=== PATIENT | male | born 1990 | race Hispanic/Latino ===

== ENCOUNTER 2017-04-29 11:32 | Inpatient (IN) | payer OTHER ==
[2017-04-29 11:47] VITALS: BMI 29.5
--- NOTE | 2017-04-29 12:21 | C.PDOC ---
History Of Present Illness 27 y/o male presents to ED with c/o syncopal episode while in the shower yesterday. Patient states he started feeling lightheaded, legs/knees felt like they buckled out from under him, and he passed out for a few seconds. He denies head trauma. Patient also reports tingling sensations in hands and feet over the last few weeks, and states it feels like his hands are cold. Denies chest pain, SOB, palpitation, visual changes, slurred speech, facial droop prior to syncopal episode. Of note, patient was started on Celexa 3 weeks ago, does not take any other medication. He denies history of neurologic/rheumatologic diseases in his immediate family; notes father had CVA in his 60s. Time Seen by Provider: 04/29/17 12:09 Chief Complaint (Nursing): Syncope History Per: Patient History/Exam Limitations: no limitations Onset/Duration Of Symptoms: Days Current Symptoms Are (Timing): Better Seizure Or Post-ictal Symptoms: None Fall Associated With With Symptoms: Yes Severity: Moderate - Symptoms Of CVA Associated Symptoms: denies: Impaired Speech, Seizure Activity, New Vision Deficit(Left), New Vision Deficit(Right), Decreased Ability To Walk, New Confusion Past Medical History Reviewed: Historical Data, Nursing Documentation, Vital Signs Vital Signs: Last Vital Signs Temp 98.8 F 04/29/17 14:17 Pulse 91 H 04/29/17 17:14 Resp 18 04/29/17 17:14 BP 130/80 04/29/17 17:14 Pulse Ox 97 04/29/17 17:14 - Medical History PMH: No Chronic Diseases Family History: States: Stroke (father) - Social History Hx Alcohol Use: Yes Hx Substance Use: No - Immunization History Hx Tetanus Toxoid Vaccination: No Hx Influenza Vaccination: No Hx Pneumococcal Vaccination: No Review Of Systems Except As Marked, All Systems Reviewed And Found Negative. Constitutional: Negative for: Fever, Chills Cardiovascular: Negative for: Chest Pain, Palpitations Respiratory: Negative for: Cough, Shortness of Breath, Wheezing Gastrointestinal: Negative for: Nausea, Vomiting, Abdominal Pain Musculoskeletal: Negative for: Neck Pain Skin: Negative for: Rash Neurological: Positive for: Other (syncopal episode; tingling sensation hands and feet). Negative for: Weakness, Incoordination, Change in Speech, Confusion , Seizures, Altered Mental Status, Headache, Dizziness Physical Exam - Physical Exam Appears: Well, Non-toxic, No Acute Distress Skin: Normal Color, Warm, Dry, No Rash Head: Atraumatic, Normacephalic Eye(s): bilateral: Normal Inspection, PERRL, EOMI Oral Mucosa: Moist Neck: Normal, Normal ROM, No Midline Cervical Tenderness, No Paracervical Tenderness, No Step Off Deformity, Supple Cardiovascular: Rhythm Regular, No Murmur Respiratory: Normal Breath Sounds, No Rales, No Rhonchi, No Wheezing Gastrointestinal/Abdominal: Normal Exam, Bowel Sounds, Soft, No Tenderness Extremity: Normal ROM, No Pedal Edema, No Calf Tenderness, Capillary Refill (< 2 sec all digits ) Extremity: Bilateral: Atraumatic, Normal Color And Temperature, Normal ROM Pulses: Left Radial: Normal, Right Radial: Normal, Left Dorsalis Pedis: Normal, Right Dorsalis Pedis: Normal Neurological/Psych: Oriented x3, Normal Speech, Normal Cognition, Normal Cranial Nerves, No Cerebellar Signs, Normal Motor, No Normal Sensation ( subjectively decreased sensation in lower legs and hands B/L), No Dysarthria, No Romberg Gait: Steady ED Course And Treatment - Laboratory Results Result Diagrams: 04/29/17 12:42 04/29/17 12:42 ECG: Interpreted By Me, Viewed By Me (sinus tachycardia 104 bpm, normal axis, no acute ST/T wave changes) ECG Interpretation: Abnormal (tachycardic ) O2 Sat by Pulse Oximetry: 97 (RA) Pulse Ox Interpretation: Normal - CT Scan/US CT Head Other Rad Studies (CT/US): Read By Radiologist, Radiology Report Reviewed CT/US Interpretation: FINDINGS: HEMORRHAGE: No intracranial hemorrhage. BRAIN : No mass effect or edema. No atrophy or chronic microvascular ischemic changes. VENTRICLES: No hydrocephalus. CALVARIUM: Unremarkable. PARANASAL SINUSES: Unremarkable as visualized. No significant inflammatory changes. MASTOID AIR CELLS: Unremarkable as visualized. No inflammatory changes. OTHER FINDINGS: None. IMPRESSION: No acute intracranial pathology identified. CTA CHEST Other Rad Studies (CT/US): Read By Radiologist, Radiology Report Reviewed CT/US Interpretation: Accession No. : [id number]. Patient Name / ID : CHEYENNE RICHARDSON / [id number]. Exam Date : 04/29/2017 15:17:49 ( Approved ). Study Comment : Sex / Age : M / 27Y. Creator : Shraddha Apodaca MD. Dictator : Shraddha Apodaca MD. Director Of Manufacturing Operations : Educational Program Director : Shraddha Apodaca MD. Approver2 : Report Date : 04/29/2017 15:53:41. My Comment : . CTA chest PE protocol. Indication: Syncope, elevated D-dimer, shortness of breath, rule out PE. Technique: Contiguous axial images were obtained through the chest with intravenous contrast enhancement. Sagittal and coronal reconstructions were generated and reviewed. This CT exam was performed using 1 or more of the falling dose reduction techniques: Automated exposure control, adjustment of the MAA and/or kV according to patient size, and/or use of iterative reconstruction technique. IV Contrast: 100 mL Visipaque. . Radiation dose (DLP): 633.33 MGy-cm. Comparison: None available. Findings: Visualized portions of the inferior thyroid gland appear unremarkable. The mediastinal and hilar vascular structures appear within normal limits. The heart appears within normal limits of size. No large central pulmonary embolus evident. Small focal filling defect noted within a right lower lobe pulmonary artery subsegmental branch (series 6, image 62). No focal consolidation. No pleural effusion. No pneumothorax. No suspicious pulmonary nodules measuring greater than 5 mm. Limited visualized portions of the upper abdomen demonstrates 1.8 cm probable splenule. No acute osseous abnormality is detected. Impression: Small focal filling defect noted within right lower lobe pulmonary artery subsegmental branch, possibly small embolus. No large central pulmonary embolus identified. Progress Note: Blood work, EKG, CT head, UA, UDS ordered and reviewed. Patient given IV NS bolus for elevated CK. D-dimer elevated - CTA chest ordered and (+ ) for small right sided PE. SC Lovenox given. - Physician Consult Information Physician Contacted: Jake Clifford Outcome Of Conversation: Discussed patient with Dr. Nazia Clifford, agrees with admission to his service for syncope, PE, elevated CK, tingling/numbness in hands/legs. Medical Decision Making Medical Decision Making: differentisal diagnoses considered: rhabdomyolysis, PE, SC/ACS, cardiac arrythmia, autoimmune disease (SLE, RA, polymyositis, dermatomyos), electrolyte abnormality, Guillain Nerinx, myasthenia gravis, infectious/viral myositis Disposition - Disposition Disposition Time: 16:30 Condition: STABLE - Clinical Impression Clinical Impression: Pulmonary embolism, Syncope, Elevated CK - Scribe Statement The provider has reviewed the documentation as recorded by the Scribe SM All medical record entries made by the Scribe were at my direction and personally dictated by me. I have reviewed the chart and agree that the record accurately reflects my personal performance of the history, physical exam, medical decision making, and the department course for this patient. I have also personally directed, reviewed, and agree with the discharge instructions and disposition. Decision To Admit - Pt Status Changed To: Hospital Disposition Of: Inpatient - Admit Certification Admit to Inpatient:: After my assessment, the patient will require hospitalization for at least two midnights. This is because of the severity of symptoms shown, intensity of services needed, and/or the medical risk in this patient being treated as an outpatient. - InPatient: Physician Admission Certification: I certify that this patient requires 2 or more midnights of care for the following reason:: see notes - . Bed Request Type: Telemetry Admitting Physician: Jake Clifford Patient Diagnosis: Pulmonary embolism, Syncope, Elevated CK
[2017-04-29 12:47] LABS: BASO # 0.1 K/uL (0.0-0.2); BASO % 0.7 % (0.0-2.0); EOS # 0.1 K/uL (0.0-0.7); EOS % 1.2 % (0.0-4.0); HEMATOCRIT 41.6 % (35.0-51.0); LYMPH # 2.6 K/uL (1.0-4.3); LYMPH % 26.2 % (20.0-40.0); MEAN CELL VOLUME 93.5 fL (80.0-94.0); MEAN CORPUSCULAR HEMOGLOBIN 33.1 pg (27.0-31.0); MEAN CORPUSCULAR HGB CONC 35.4 g/dL (33.0-37.0); MEAN PLATELET VOLUME 7.3 fL (7.2-11.7); MONO # 0.9 K/uL (0.0-0.8); MONO % 8.8 % (0.0-10.0); RED CELL DISTRIBUTION WIDTH 13.8 % (11.5-14.5); WHITE BLOOD COUNT 9.8 K/uL (4.8-10.8)
[2017-04-29 12:51] LABS: RBC URINE < 1 /hpf (0-3); URINE BILIRUBIN NEGATIVE (NEGATIVE); URINE BLOOD NEGATIVE (NEGATIVE); URINE COLOR Yellow (YELLOW); URINE GLUCOSE (UA) NORMAL (Normal); URINE KETONE NEGATIVE (NEGATIVE); URINE LEUKOCYTE ESTERASE NEG Leu/uL (Negative); URINE PROTEIN NEGATIVE (NEGATIVE); URINE UROBILINOGEN NORMAL mg/dL (0.2-1.0); WBC URINE 2 /hpf (0-5)
[2017-04-29 12:53] LABS: CHLORIDE 102 mmol/L (98-107); SODIUM 140 mmol/L (132-148)
[2017-04-29 12:54] LABS: POTASSIUM 3.8 mmol/L (3.6-5.2)
[2017-04-29 12:56] LABS: ALB/GLOB RATIO 1.1 (1.0-2.1); ALKALINE PHOSPHATASE 68 U/L (38-126); ALT/SGPT 40 U/L (21-72); AST/SGOT 43 U/L (17-59); BLOOD UREA NITROGEN 17 mg/dL (9-20); CARBON DIOXIDE 27 mmol/L (22-30); GFR AFRICAN-AMERICAN > 60; GLUCOSE,RANDOM 79 mg/dL (75-110); TOTAL PROTEIN 8.9 g/dL (6.3-8.3)
[2017-04-29 12:57] LABS: CALCIUM 9.6 mg/dl (8.6-10.4)
[2017-04-29] MEDS ORDERED: Sodium Chloride 0.9% 1,000 ML IV ONE (13:23)
[2017-04-29] MEDS ORDERED: Sodium Chloride 0.9% 1,000 ML ONE (13:29)
--- NOTE | 2017-04-29 13:39 | CT ---
PROCEDURE: CT HEAD WITHOUT CONTRAST. HISTORY: SYNCOPE COMPARISON: None available. TECHNIQUE: Axial computed tomography images were obtained through the head/brain without intravenous contrast. Radiation dose: Total exam DLP = 956.62 mGy-cm. This CT exam was performed using one or more of the following dose reduction techniques: Automated exposure control, adjustment of the mA and/or kV according to patient size, and/or use of iterative reconstruction technique. FINDINGS: HEMORRHAGE: No intracranial hemorrhage. BRAIN: No mass effect or edema. No atrophy or chronic microvascular ischemic changes. VENTRICLES: No hydrocephalus. CALVARIUM: Unremarkable. PARANASAL SINUSES: Unremarkable as visualized. No significant inflammatory changes. MASTOID AIR CELLS: Unremarkable as visualized. No inflammatory changes. OTHER FINDINGS: None. IMPRESSION: No acute intracranial pathology identified.
[2017-04-29 13:46] LABS: THYROID STIMULATING HORMONE 3.68 mIU/L (0.46-4.68)
[2017-04-29] MEDS ORDERED: Iodixanol 320 mg/ml 150 ml Bottle IV ONE (14:25)
--- NOTE | 2017-04-29 15:55 | CT ---
CTA chest PE protocol Indication: Syncope, elevated D-dimer, shortness of breath, rule out PE Technique: Contiguous axial images were obtained through the chest with intravenous contrast enhancement. Sagittal and coronal reconstructions were generated and reviewed. This CT exam was performed using 1 or more of the falling dose reduction techniques: Automated exposure control, adjustment of the MAA and/or kV according to patient size, and/or use of iterative reconstruction technique. IV Contrast: 100 mL Visipaque Radiation dose (DLP): 633.33 MGy-cm. Comparison: None available. Findings: Visualized portions of the inferior thyroid gland appear unremarkable. The mediastinal and hilar vascular structures appear within normal limits. The heart appears within normal limits of size. No large central pulmonary embolus evident. Small focal filling defect noted within a right lower lobe pulmonary artery subsegmental branch (series 6, image 62). No focal consolidation. No pleural effusion. No pneumothorax. No suspicious pulmonary nodules measuring greater than 5 mm. Limited visualized portions of the upper abdomen demonstrates 1.8 cm probable splenule. No acute osseous abnormality is detected. Impression: Small focal filling defect noted within right lower lobe pulmonary artery subsegmental branch, possibly small embolus. No large central pulmonary embolus identified.
[2017-04-29] MEDS ORDERED: Enoxaparin 40 mg Syringe SC STA (16:32)
[2017-04-29] MEDS ORDERED: Enoxaparin 40 mg Syringe ONE (16:43)
[2017-04-29] MEDS ORDERED: Enoxaparin 60 mg Syringe ONE (16:44)
--- NOTE | 2017-04-29 19:57 | CP.PCM.HP ---
History of Present Illness - History of Present Illness History of Present Illness: A 27-year-old male with PMH- depression [on citalopram] presents to the ER with C/Osyncopal episodes. The patient reports that the pain patient was in shower he felt some abnormal sensation in his legs but still continued the shower had weakness in the legs and then he fell down. He immediately regained consciousness. No associated complaint of bowel or bladder loss. Over the next 2 days he had 2 similar episodes. No C/Oloss of consciousness, head trauma, blurry vision, diaphoresis, chest pain, palpitations, seizures, tongue biting or bowel or bladder disturbance. Past Patient History - Past Social History Smoking Status: Never Smoked - PSYCHIATRIC Hx Substance Use: No - SURGICAL HISTORY Hx Surgeries: Yes Hx Orthopedic Surgery: Yes (left wrist) Meds Home Medications: Home Medication List Medication Instructions Recorded Confirmed Type Dabigatran [Pradaxa] 150 mg PO BID #60 cap 05/01/17 Rx Allergies/Adverse Reactions: Allergies Allergy/AdvReac Type Severity Reaction Status Date / Time No Known Allergies Allergy Verified 04/29/17 11:52 Physical Exam - Constitutional Appears: Well - Head Exam Head Exam: ATRAUMATIC, NORMAL INSPECTION, NORMOCEPHALIC - Eye Exam Eye Exam: EOMI, Normal appearance, PERRL Pupil Exam: NORMAL ACCOMODATION, PERRL - ENT Exam ENT Exam: Mucous Membranes Moist, Normal Exam - Neck Exam Neck exam: Positive for: Normal Inspection - Respiratory Exam Respiratory Exam: Decreased Breath Sounds - Cardiovascular Exam Cardiovascular Exam: REGULAR RHYTHM, +S1, +S2 - GI/Abdominal Exam GI & Abdominal Exam: Diminished Bowel Sounds, Soft - Rectal Exam Rectal Exam: Deferred Results - Vital Signs Recent Vital Signs: Last Vital Signs Temp 99.4 F 04/29/17 18:44 Pulse 84 04/29/17 18:44 Resp 20 04/29/17 18:44 BP 123/79 04/29/17 18:44 Pulse Ox 97 04/29/17 18:44 - Labs Result Diagrams: 04/29/17 12:42 04/29/17 12:42 Labs: Laboratory Results - last 24 hr 04/29/17 04/29/17 04/29/17 12:42 12:42 12:42 WBC 9.8 RBC 4.45 Hgb 14.7 Hct 41.6 MCV 93.5 MCH 33.1 H MCHC 35.4 RDW 13.8 Plt Count 271 MPV 7.3 Neut % (Auto) 63.1 Lymph % (Auto) 26.2 [place] % (Auto) 8.8 Eos % (Auto) 1.2 Baso % (Auto) 0.7 Neut # 6.2 Lymph # 2.6 [place] # 0.9 H Eos # 0.1 Baso # 0.1 ESR 25 H D-Dimer, Quantitative 661 H Sodium Potassium Chloride Carbon Dioxide Anion Gap BUN Creatinine Est GFR ( Amer) Est GFR (Non-Af Amer) Random Glucose Calcium Total Bilirubin AST ALT Alkaline Phosphatase Total Creatine Kinase CK-MB (Mass) Troponin I Total Protein Albumin Globulin Albumin/Globulin Ratio TSH 3rd Generation Urine Color Yellow Urine Clarity Clear Urine pH 5.0 Ur Specific [place] 1.017 Urine Protein Negative Urine Glucose (UA) Normal Urine Ketones Negative Urine Blood Negative Urine Nitrate Negative Urine Bilirubin Negative Urine Urobilinogen Normal Ur Leukocyte Esterase Neg Urine WBC (Auto) 2 Urine RBC (Auto) < 1 Urine Opiates Screen Urine Methadone Screen Ur Barbiturates Screen Ur Phencyclidine Scrn Ur Amphetamines Screen U Benzodiazepines Scrn U Oth Cocaine Metabols U Cannabinoids Screen 04/29/17 04/29/17 12:42 12:42 WBC RBC Hgb Hct MCV MCH MCHC RDW Plt Count MPV Neut % (Auto) Lymph % (Auto) [place] % (Auto) Eos % (Auto) Baso % (Auto) Neut # Lymph # [place] # Eos # Baso # ESR D-Dimer, Quantitative Sodium 140 Potassium 3.8 Chloride 102 Carbon Dioxide 27 Anion Gap 14 BUN 17 Creatinine 1.0 Est GFR ( Amer) > 60 Est GFR (Non-Af Amer) > 60 Random Glucose 79 Calcium 9.6 Total Bilirubin 1.0 AST 43 ALT 40 Alkaline Phosphatase 68 Total Creatine Kinase 1086 H CK-MB (Mass) 3.27 Troponin I < 0.0120 Total Protein 8.9 H Albumin 4.7 Globulin 4.2 H Albumin/Globulin Ratio 1.1 TSH 3rd Generation 3.68 Urine Color Urine Clarity Urine pH Ur Specific [place] Urine Protein Urine Glucose (UA) Urine Ketones Urine Blood Urine Nitrate Urine Bilirubin Urine Urobilinogen Ur Leukocyte Esterase Urine WBC (Auto) Urine RBC (Auto) Urine Opiates Screen Negative Urine Methadone Screen Negative Ur Barbiturates Screen Negative Ur Phencyclidine Scrn Negative Ur Amphetamines Screen Negative U Benzodiazepines Scrn Negative U Oth Cocaine Metabols Negative U Cannabinoids Screen Negative
--- NOTE | 2017-04-30 09:56 | CP.PCM.CON ---
<Kalyn Ragsdale - Last Filed: 04/30/17 14:01> History of Present Illness - History of Present Illness History of Present Illness: Consult Note for Dr. Goins's Service - Pulmonology Reason for Consult: " Pulmonary Embolism " HPI: 27 M with PMHx of Depression/Anxiety presented to the ED s/p 3 syncopal episodes. Patient reports on 04/28, 6:30 am patient was preparing to shower when he started to feel his knees buckle, he did not fall that time but then proceeded into the shower where he stated, 3 separate episodes occurred back to back where " his knees buckled and I went from one moment standing to the next moment being on the floor of the bathtub". He denied LOC, hitting his head, blurry vision, diaphoresis, chest pain, SOB, seizures, tongue biting, urine or bowel incontinence. PMHx: Depression/Anxiety PSHx: Left wrist fracture repair (pins in place 2010) Meds: CeleXa 20mg PO daily All: NKDA SHx: Admitted to smoking 1-2 cigarettes sparingly, social ETOH use, denied any illicit drug use FHx: SIGNIFICANT history of Cancer in Mother's side of the family, Father stroke age 59 - with no risk factors - alive and well Past Patient History - Past Social History Smoking Status: Current Some Days Smoker - CARDIAC Hx Cardiac Disorders: No - PULMONARY Hx Respiratory Disorders: No - NEUROLOGICAL Hx Neurological Disorder: No - HEENT Hx HEENT Problems: No - RENAL Hx Chronic Kidney Disease: No - ENDOCRINE/METABOLIC Hx Endocrine Disorders: No - HEMATOLOGICAL/ONCOLOGICAL Hx Blood Disorders: No - INTEGUMENTARY Hx Dermatological Problems: No - MUSCULOSKELETAL/RHEUMATOLOGICAL Hx Musculoskeletal Disorders: No Hx Falls: Yes - GASTROINTESTINAL Hx Gastrointestinal Disorders: No - GENITOURINARY/GYNECOLOGICAL Hx Genitourinary Disorders: No - PSYCHIATRIC Hx Psychophysiologic Disorder: No Hx Substance Use: No - SURGICAL HISTORY Hx Surgeries: Yes Hx Orthopedic Surgery: Yes (left wrist) - ANESTHESIA Hx Anesthesia: Yes Hx Anesthesia Reactions: No Hx Malignant Hyperthermia: No Has any member of the family had a problem w/ anesthesia?: No Meds Allergies/Adverse Reactions: Allergies Allergy/AdvReac Type Severity Reaction Status Date / Time No Known Allergies Allergy Verified 04/29/17 11:52 - Medications Medications: Current Medications Citalopram Hydrobromide (Celexa) 20 mg PO DAILY [facility] Enoxaparin Sodium (Lovenox) 100 mg SC Q12 [place] Pneumococcal Polyvalent Vaccine (Pneumovax 23 Vaccine) 0.5 ml IM .ONCE ONE Stop: 05/01/17 10:01 Physical Exam - Constitutional Appears: No Acute Distress - Head Exam Head Exam: NORMAL INSPECTION, NORMOCEPHALIC - Eye Exam Eye Exam: EOMI, Normal appearance, PERRL Pupil Exam: NORMAL ACCOMODATION - ENT Exam ENT Exam: Mucous Membranes Moist, Normal Exam - Respiratory Exam Respiratory Exam: Clear to Auscultation Bilateral, NORMAL BREATHING PATTERN. absent: Decreased Breath Sounds, Wheezes - Cardiovascular Exam Cardiovascular Exam: REGULAR RHYTHM, RRR, +S1, +S2 - GI/Abdominal Exam GI & Abdominal Exam: Normal Bowel Sounds, Soft. absent: Distended, Tenderness - Rectal Exam Rectal Exam: Deferred - Extremities Exam Extremities exam: Positive for: normal inspection, pedal pulses present. Negative for: pedal edema, tenderness - Back Exam Back exam: NORMAL INSPECTION - Neurological Exam Neurological exam: Alert, CN II-XII Intact, Oriented x3 - Psychiatric Exam Psychiatric exam: Normal Affect, Normal Mood - Skin Skin Exam: Dry, Intact, Normal Color, Warm Additional comments: No petechiae noted Results - Vital Signs Recent Vital Signs: Last Vital Signs Temp 97.8 F 04/30/17 09:25 Pulse 68 04/30/17 09:25 Resp 20 04/30/17 09:25 BP 134/92 H 04/30/17 09:25 Pulse Ox 97 04/30/17 09:25 - Labs Result Diagrams: 04/29/17 12:42 04/29/17 12:42 Labs: Laboratory Results - last 24 hr 04/29/17 04/29/17 04/29/17 12:42 12:42 12:42 WBC 9.8 RBC 4.45 Hgb 14.7 Hct 41.6 MCV 93.5 MCH 33.1 H MCHC 35.4 RDW 13.8 Plt Count 271 MPV 7.3 Neut % (Auto) 63.1 Lymph % (Auto) 26.2 [place] % (Auto) 8.8 Eos % (Auto) 1.2 Baso % (Auto) 0.7 Neut # 6.2 Lymph # 2.6 [place] # 0.9 H Eos # 0.1 Baso # 0.1 ESR 25 H D-Dimer, Quantitative 661 H Sodium Potassium Chloride Carbon Dioxide Anion Gap BUN Creatinine Est GFR ( Amer) Est GFR (Non-Af Amer) Random Glucose Calcium Total Bilirubin AST ALT Alkaline Phosphatase Total Creatine Kinase CK-MB (Mass) Troponin I Total Protein Albumin Globulin Albumin/Globulin Ratio TSH 3rd Generation Urine Color Yellow Urine Clarity Clear Urine pH 5.0 Ur Specific [place] 1.017 Urine Protein Negative Urine Glucose (UA) Normal Urine Ketones Negative Urine Blood Negative Urine Nitrate Negative Urine Bilirubin Negative Urine Urobilinogen Normal Ur Leukocyte Esterase Neg Urine WBC (Auto) 2 Urine RBC (Auto) < 1 Urine Opiates Screen Urine Methadone Screen Ur Barbiturates Screen Ur Phencyclidine Scrn Ur Amphetamines Screen U Benzodiazepines Scrn U Oth Cocaine Metabols U Cannabinoids Screen 04/29/17 04/29/17 12:42 12:42 WBC RBC Hgb Hct MCV MCH MCHC RDW Plt Count MPV Neut % (Auto) Lymph % (Auto) [place] % (Auto) Eos % (Auto) Baso % (Auto) Neut # Lymph # [place] # Eos # Baso # ESR D-Dimer, Quantitative Sodium 140 Potassium 3.8 Chloride 102 Carbon Dioxide 27 Anion Gap 14 BUN 17 Creatinine 1.0 Est GFR ( Amer) > 60 Est GFR (Non-Af Amer) > 60 Random Glucose 79 Calcium 9.6 Total Bilirubin 1.0 AST 43 ALT 40 Alkaline Phosphatase 68 Total Creatine Kinase 1086 H CK-MB (Mass) 3.27 Troponin I < 0.0120 Total Protein 8.9 H Albumin 4.7 Globulin 4.2 H Albumin/Globulin Ratio 1.1 TSH 3rd Generation 3.68 Urine Color Urine Clarity Urine pH Ur Specific [place] Urine Protein Urine Glucose (UA) Urine Ketones Urine Blood Urine Nitrate Urine Bilirubin Urine Urobilinogen Ur Leukocyte Esterase Urine WBC (Auto) Urine RBC (Auto) Urine Opiates Screen Negative Urine Methadone Screen Negative Ur Barbiturates Screen Negative Ur Phencyclidine Scrn Negative Ur Amphetamines Screen Negative U Benzodiazepines Scrn Negative U Oth Cocaine Metabols Negative U Cannabinoids Screen Negative Assessment & Plan - Assessment and Plan (Free Text) Plan: Pulmonary Embolism Tachycardia on admission EKG: Sinus tachycardia 104 bpm, normal axis, no acute ST/T wave changes D- Dimer: 661 CPK: 1086 ESR: 25 JANELLE: CT Chest: Small focal filling defect noted within right lower lobe pulmonary artery subsegmental branch, possibly small embolus. No large central pulmonary embolus identified. Heme/Onc consulted- Dr. Radha Cervantes - help appreciated F/U hypercoagulability workup, venous dopplers Lovenox 100mg SC Q12 Syncope Head CT: No acute intracranial pathology identified. UDS - negative F/U ECHO Strong Family Hx of Malignancy Heme/Onc consulted- Dr. Radha Cervantes - help appreciated DW Melyssa Florez DO, PGY-1 <Octavio Goins S - Last Filed: 04/30/17 15:09> Meds - Medications Medications: Current Medications Citalopram Hydrobromide (Celexa) 20 mg PO DAILY [facility] Last Admin: 04/30/17 10:48 Dose: 20 mg Enoxaparin Sodium (Lovenox) 100 mg SC Q12 [facility] Last Admin: 04/30/17 10:48 Dose: 100 mg Pneumococcal Polyvalent Vaccine (Pneumovax 23 Vaccine) 0.5 ml IM .ONCE ONE Stop: 05/01/17 10:01 Results - Vital Signs Recent Vital Signs: Last Vital Signs Temp 97.8 F 04/30/17 09:25 Pulse 68 04/30/17 09:25 Resp 20 04/30/17 09:25 BP 134/92 H 04/30/17 09:25 Pulse Ox 97 04/30/17 09:25 - Labs Result Diagrams: 04/29/17 12:42 04/29/17 12:42 Attending/Attestation - Attestation I have personally seen and examined this patient.: Yes I have fully participated in the care of the patient.: Yes I have reviewed all pertinent clinical information: Yes Notes (Text): 04/30/17 15:08 patient seen and examined. CT of the chest with contrast showed pulmonary embolism Continue Lovenox Feel this Doppler of lower extremities Hematology consult
[2017-04-30] MEDS: Enoxaparin 100 mg Syringe SC SCH ×2 (10:48→21:09)
--- NOTE | 2017-04-30 18:43 | CP.PCM.PN ---
Subjective - Date & Time of Evaluation Date of Evaluation: 04/30/17 Time of Evaluation: 10:40 - Subjective Subjective: clinically same Objective - Vital Signs/Intake and Output Vital Signs (last 24 hours): Temp Pulse Resp BP Pulse Ox 98.4 F 84 18 121/75 97 04/30/17 15:15 04/30/17 15:15 04/30/17 15:15 04/30/17 15:15 04/30/17 15:15 Intake and Output: 04/30/17 04/30/17 06:59 18:59 Intake Total 400 400 Balance 400 400 - Medications Medications: Current Medications Citalopram Hydrobromide (Celexa) 20 mg PO DAILY [facility] Last Admin: 04/30/17 10:48 Dose: 20 mg Enoxaparin Sodium (Lovenox) 100 mg SC Q12 [facility] Last Admin: 04/30/17 10:48 Dose: 100 mg Pneumococcal Polyvalent Vaccine (Pneumovax 23 Vaccine) 0.5 ml IM .ONCE ONE Stop: 05/01/17 10:01 - Labs Labs: 04/29/17 12:42 04/29/17 12:42 - Constitutional Appears: Well - Head Exam Head Exam: ATRAUMATIC, NORMAL INSPECTION, NORMOCEPHALIC - Eye Exam Eye Exam: EOMI, Normal appearance, PERRL Pupil Exam: NORMAL ACCOMODATION, PERRL - ENT Exam ENT Exam: Mucous Membranes Moist, Normal Exam - Neck Exam Neck Exam: Full ROM, Normal Inspection. absent: Lymphadenopathy - Respiratory Exam Respiratory Exam: Clear to Ausculation Bilateral, NORMAL BREATHING PATTERN - Cardiovascular Exam Cardiovascular Exam: REGULAR RHYTHM, +S1, +S2. absent: Murmur - GI/Abdominal Exam GI & Abdominal Exam: Soft, Normal Bowel Sounds. absent: Tenderness - Rectal Exam Rectal Exam: NORMAL INSPECTION - Back Exam Back Exam: NORMAL INSPECTION - Neurological Exam Neurological Exam: Alert, Awake, CN II-XII Intact, Normal Gait, Oriented x3 - Psychiatric Exam Psychiatric exam: Normal Affect, Normal Mood Assessment and Plan (1) Elevated CK Status: Acute (2) Elevated serum globulin level Status: Acute (3) Pulmonary embolism Status: Acute (4) Syncope Status: Acute - Assessment and Plan (Free Text) Plan: Patient examined. Patient medical. Chest x-ray normal. CTA chest suggestive of a small focal filling defect in the right lower lobe pulmonary artery subsegmental branch possibility of small embolus. CT head not suggestive of any acute intracranial pathology. Continue supportive care.
--- NOTE | 2017-04-30 20:33 | CP.PCM.CON ---
History of Present Illness - History of Present Illness History of Present Illness: 27 year old male with a history of anxiety admitted after several episodes of falling and blackouts, found to have a pulmonary embolism. The patient reports to having strange sensations which he attributed to being tired. He thought a shower would help but had several episodes of his knees buckling on his way to the shower. He denies shortness of breath but notes he has had chest pain for 1 year. He has been having numbness in his hands and feet, with calf discomfort. He recently took a flight to [place] and was sedentary for about 3 hours. Past medical history: anxiety Past surgical history: Wrist pin Family history: Father had [place] at 59, grandmother had lung cancer (smoker) Social history: Denies tobacco, social alcohol, and denies illicit drug use. Allergies: NKA Review of systems: All remaining review of systems including HEENT, cardiovascular, respiratory, gastrointestinal, genitourinary, musculoskeletal, dermatologic, neurologic, and psychiatric are negative unless mentioned in the HPI. Past Patient History - Past Social History Smoking Status: Current Some Days Smoker - CARDIAC Hx Cardiac Disorders: No - PULMONARY Hx Respiratory Disorders: No - NEUROLOGICAL Hx Neurological Disorder: No - HEENT Hx HEENT Problems: No - RENAL Hx Chronic Kidney Disease: No - ENDOCRINE/METABOLIC Hx Endocrine Disorders: No - HEMATOLOGICAL/ONCOLOGICAL Hx Blood Disorders: No - INTEGUMENTARY Hx Dermatological Problems: No - MUSCULOSKELETAL/RHEUMATOLOGICAL Hx Musculoskeletal Disorders: No Hx Falls: Yes - GASTROINTESTINAL Hx Gastrointestinal Disorders: No - GENITOURINARY/GYNECOLOGICAL Hx Genitourinary Disorders: No - PSYCHIATRIC Hx Psychophysiologic Disorder: No Hx Substance Use: No - SURGICAL HISTORY Hx Surgeries: Yes Hx Orthopedic Surgery: Yes (left wrist) - ANESTHESIA Hx Anesthesia: Yes Hx Anesthesia Reactions: No Hx Malignant Hyperthermia: No Has any member of the family had a problem w/ anesthesia?: No Meds Allergies/Adverse Reactions: Allergies Allergy/AdvReac Type Severity Reaction Status Date / Time No Known Allergies Allergy Verified 04/29/17 11:52 - Medications Medications: Current Medications Citalopram Hydrobromide (Celexa) 20 mg PO DAILY [facility] Last Admin: 04/30/17 10:48 Dose: 20 mg Enoxaparin Sodium (Lovenox) 100 mg SC Q12 [facility] Last Admin: 04/30/17 10:48 Dose: 100 mg Pneumococcal Polyvalent Vaccine (Pneumovax 23 Vaccine) 0.5 ml IM .ONCE ONE Stop: 05/01/17 10:01 Physical Exam - Head Exam Head Exam: ATRAUMATIC - Eye Exam Eye Exam: Normal appearance - ENT Exam ENT Exam: Mucous Membranes Dry - Respiratory Exam Respiratory Exam: NORMAL BREATHING PATTERN - Cardiovascular Exam Cardiovascular Exam: +S1, +S2 - GI/Abdominal Exam GI & Abdominal Exam: Normal Bowel Sounds - Extremities Exam Extremities exam: Positive for: normal inspection - Neurological Exam Neurological exam: Oriented x3 - Psychiatric Exam Psychiatric exam: Normal Affect, Normal Mood - Skin Skin Exam: Warm Results - Vital Signs Recent Vital Signs: Last Vital Signs Temp 98.4 F 04/30/17 15:15 Pulse 84 04/30/17 15:15 Resp 18 04/30/17 15:15 BP 121/75 04/30/17 15:15 Pulse Ox 97 04/30/17 15:15 - Labs Result Diagrams: 04/29/17 12:42 04/29/17 12:42 Assessment & Plan (1) Pulmonary embolism Assessment and Plan: will send inherited thrombophilia work up; Factor V Leiden, prothrombin gene mutation, and antiphospholipid Ab panel Protein C + S and antithrombin III can be checked at a later time as they may be low in an acute clotting event therapeutic anticoagulation f/u lower extremity venous dopplers patient agreeable to outpatient Pradaxa 150mg BID Status: Acute (2) Elevated serum globulin level Assessment and Plan: will rule out monoclonal protein, HIV, and hepatitis Thank you for this interesting consult. Status: Acute
--- NOTE | 2017-05-01 01:00 | CARD ---
APPROVED REPORT EXAM: Two-dimensional and M-mode echocardiogram with Doppler and color Doppler. Other Information Quality : GoodRhythm : NSR INDICATION Pulmonary Embolism Syncope EF, ELEVATED CK M-Mode DIMENSIONS RVDd2.10 (2.1-3.2cm)Left Atrium (MM)2.91 (2.5-4.0cm) IVSd1.22 (0.7-1.1cm)Aortic Root3.25 (2.2-3.7cm) LVDd4.83 (4.0-5.6cm)Aortic Cusp Exc.2.21 (1.5-2.0cm) PWd1.33 (0.7-1.1cm)FS (%) 32 % LVDs3.28 (2.0-3.8cm)LVEF (%)60 (>50%) Aortic Valve AoV Peak Pqdxkaad96.3cm/Yossi Peak GR.3mmHg Mitral Valve MV E Irrxivyf11.3cm/sMV A Iyntfcgs88.9cm/sE/A ratio1.5 TDI E/Lateral E'0.0E/Medial E'0.0 Tricuspid Valve TR Peak Avxtmoti901me/sTR Peak Gr.[id number] LEFT VENTRICLE The left ventricle is normal size. There is borderline concentric left ventricular hypertrophy. Left ventricle systolic function is normal. The Ejection Fraction is 60-65%. There is normal LV segmental wall motion. The left ventricular diastolic function is normal. No left ventricle thrombus noted on this study. RIGHT VENTRICLE The right ventricle is normal size. The right ventricular systolic function is normal. ATRIA The left atrium size is normal. The right atrium size is normal. AORTIC VALVE The aortic valve is mildly thickened. The aortic valve is trileaflet. No aortic regurgitation is present. There is no aortic valvular stenosis. There is no aortic valvular vegetation. MITRAL VALVE Mitral annular calcification is mild. There is no evidence of mitral valve prolapse. There is no mitral valve stenosis. Mitral regurgitation is trace to mild. TRICUSPID VALVE The tricuspid valve is normal in structure. There is trace tricuspid regurgitation. Right ventricular systolic pressure is estimated at less than 30 mmHg. There is no pulmonary hypertension. There is no tricuspid valve prolapse or vegetation. There is no tricuspid valve stenosis. PULMONIC VALVE The pulmonic valve is not well visualized. There is trace pulmonic valvular regurgitation. There is no pulmonic valvular stenosis. GREAT VESSELS The aortic root is normal in size. The IVC is normal in size and collapses >50% with inspiration. PERICARDIAL EFFUSION There is no pericardial effusion. There is no pleural effusion. <Conclusion> The left ventricle is normal size. There is borderline concentric left ventricular hypertrophy. Left ventricle systolic function is normal. The Ejection Fraction is 60-65%. The left ventricular diastolic function is normal. The right ventricular size and function are normal. The left atrium size is normal. The right atrium size is normal. Mitral regurgitation is trace to mild. There is trace tricuspid regurgitation. There is no pulmonary hypertension.
[2017-05-01 07:26] LABS: THYROID STIMULATING HORMONE 5.55 mIU/L (0.46-4.68)
[2017-05-01 07:53] VITALS: BP 123/82; RESP 20; TEMP 97.8; O2SAT 98
[2017-05-01 08:16] LABS: FOLATE > 20.0 ng/mL
[2017-05-01] MEDS ORDERED: Influenza Vaccine 60 mcg/0.5 mL SYR (4YR UP) IM ONE ×2 (10:00→14:00)
[2017-05-01] MEDS ORDERED: Pneumococcal 23-Valent Vaccine IM ONE ×2 (10:00→14:00)
--- NOTE | 2017-05-01 13:57 | VASCLAB ---
PROCEDURE: Lower Extremity Venous Duplex Exam. HISTORY: Deep vein thrombosis PRIORS: None. TECHNIQUE: Bilateral common femoral, femoral, popliteal and posterior tibial, peroneal and great saphenous veins were evaluated. Flow was assessed with color Doppler, compressibility, assessment of phasic flow and augmentation response. Report prepared by HARLEY Coronel FINDINGS: RIGHT: 1. Common Femoral Vein: 1.1. Compressibility - Fully compressible: Thrombus - None : Flow - Phasic: Augmentation -Normal: Reflux - None. 2. Femoral Vein: 2.1. Compressibility - Fully compressible: Thrombus - None : Flow - Phasic: Augmentation -Normal: Reflux - None. 3. Popliteal Vein: 3.1. Compressibility - Fully compressible: Thrombus - None : Flow - Phasic: Augmentation -Normal: Reflux - None. 4. Posterior Tibial Vein: 4.1. Compressibility - Fully compressible: Thrombus - None: Flow - Phasic: Augmentation -Normal: Reflux - None. 5. Peroneal Vein: 5.1. Compressibility - Fully compressible: Thrombus - None: Flow - Phasic: Augmentation -Normal: Reflux - None. 6. Great Saphenous Vein: 6.1. Compressibility - Fully compressible: Thrombus - None: Flow - Phasic: Augmentation - Normal: Reflux - None. LEFT: 1. Common Femoral Vein: 1.1. Compressibility - Fully compressible: Thrombus - None: Flow - Phasic: Augmentation -Normal: Reflux - None. 2. Femoral Vein: 2.1. Compressibility - Fully compressible: Thrombus - None: Flow - Phasic: Augmentation -Normal: Reflux - None. 3. Popliteal Vein: 3.1. Compressibility - Fully compressible: Thrombus - None : Flow - Phasic: Augmentation -Normal: Reflux - None. 4. Posterior Tibial Vein: 4.1. Compressibility - Fully compressible: Thrombus - None: Flow - Phasic: Augmentation -Normal: Reflux - None. 5. Peroneal Vein: 5.1. Compressibility - Fully compressible: Thrombus - None: Flow - Phasic: Augmentation -Normal: Reflux - None. 6. Great Saphenous Vein: 6.1. Compressibility - Fully compressible: Thrombus - None: Flow - Phasic: Augmentation - Normal: Reflux - None. OTHER FINDINGS: Right: None significant. Left: None significant. IMPRESSION: Right: No evidence of deep or superficial vein thrombosis of the right lower extremity. Normal valve function noted of the right side. Left: No evidence of deep or superficial vein thrombosis of the left lower extremity. Normal valve function noted of the left side.
[2017-05-01] MEDS: Enoxaparin 100 mg Syringe SC SCH (14:12)
--- NOTE | 2017-05-01 14:20 | CP.PCM.PN ---
Subjective - Date & Time of Evaluation Date of Evaluation: 05/01/17 Time of Evaluation: 14:00 - Subjective Subjective: Patient seen today , denies any chest pain, sob, palpitations , Objective - Vital Signs/Intake and Output Vital Signs (last 24 hours): Temp Pulse Resp BP Pulse Ox 97.8 F 66 20 123/82 98 05/01/17 07:40 05/01/17 07:40 05/01/17 07:40 05/01/17 07:40 05/01/17 07:40 Intake and Output: 05/01/17 05/01/17 06:59 18:59 Intake Total 600 Balance 600 - Medications Medications: Current Medications Citalopram Hydrobromide (Celexa) 20 mg PO DAILY [facility] Last Admin: 05/01/17 14:12 Dose: 20 mg Enoxaparin Sodium (Lovenox) 100 mg SC Q12 [facility] Last Admin: 05/01/17 14:12 Dose: 100 mg - Labs Labs: 04/29/17 12:42 04/29/17 12:42 Assessment and Plan - Assessment and Plan (Free Text) Assessment: A/P 27 yr old male admitted for Pulmonary embolism, Syncope, and Elevated CK seen the patient today and cleared for discharge with pradaxa D/w Dr. Nazia moreno , stable for discharge home today and f/u with Dr. Cervantes office discharge plan discussed with patient and family at bedside, who understands and agrees with plan RX for pradaxa e -prescribed to pt pharmacy
--- NOTE | 2017-05-01 14:23 | CP.PCM.PN ---
Subjective - Date & Time of Evaluation Date of Evaluation: 05/01/17 Time of Evaluation: 09:00 - Subjective Subjective: Pulmonology Note for Dr. Goins's Service Patient was seen and examined at bedside. Patient reports no acute complaints. Patient seen by Dr. Cervantes will be started on Pradexa and will follow up as outpatient for further workup/results of hypercoagulability labs ordered. Denied fever, chills, headache, chest pain, SOB, cough abdominal pain, n/v/d/c, or urinary symptoms. Objective - Vital Signs/Intake and Output Vital Signs (last 24 hours): Temp Pulse Resp BP Pulse Ox 97.8 F 66 20 123/82 98 05/01/17 07:40 05/01/17 07:40 05/01/17 07:40 05/01/17 07:40 05/01/17 07:40 Intake and Output: 05/01/17 05/01/17 06:59 18:59 Intake Total 600 Balance 600 - Medications Medications: Current Medications Citalopram Hydrobromide (Celexa) 20 mg PO DAILY [facility] Last Admin: 05/01/17 14:12 Dose: 20 mg Enoxaparin Sodium (Lovenox) 100 mg SC Q12 [facility] Last Admin: 05/01/17 14:12 Dose: 100 mg - Labs Labs: 04/29/17 12:42 04/29/17 12:42 - Additional Findings Additional findings: - Constitutional Appears: No Acute Distress - Head Exam Head Exam: NORMAL INSPECTION, NORMOCEPHALIC - Eye Exam Eye Exam: EOMI, Normal appearance, PERRL Pupil Exam: NORMAL ACCOMODATION - ENT Exam ENT Exam: Mucous Membranes Moist, Normal Exam - Respiratory Exam Respiratory Exam: Clear to Auscultation Bilateral, NORMAL BREATHING PATTERN. absent: Decreased Breath Sounds, Wheezes - Cardiovascular Exam Cardiovascular Exam: REGULAR RHYTHM, RRR, +S1, +S2 - GI/Abdominal Exam GI & Abdominal Exam: Normal Bowel Sounds, Soft. absent: Distended, Tenderness - Rectal Exam Rectal Exam: Deferred - Extremities Exam Extremities exam: Positive for: normal inspection, pedal pulses present. Negative for: pedal edema, tenderness - Back Exam Back exam: NORMAL INSPECTION - Neurological Exam Neurological exam: Alert, CN II-XII Intact, Oriented x3 - Psychiatric Exam Psychiatric exam: Normal Affect, Normal Mood - Skin Skin Exam: Dry, Intact, Normal Color, Warm Additional comments: No petechiae noted Assessment and Plan - Assessment and Plan (Free Text) Plan: Pulmonary Embolism Tachycardia on admission EKG: Sinus tachycardia 104 bpm, normal axis, no acute ST/T wave changes D- Dimer: 661 CPK: 1086 ESR: 25 JANELLE: CT Chest: Small focal filling defect noted within right lower lobe pulmonary artery subsegmental branch, possibly small embolus. No large central pulmonary embolus identified. Heme/Onc consulted- Dr. Radha Cervantes - help appreciated venous dopplers - no DVT Hypercoagulability workup - results will be reviewed with Dr. Cervantes on follow up appointment, Lovenox 100mg SC Q12 in house Patient will be discharged with Pradaxa 150mg PO BID Syncope Head CT: No acute intracranial pathology identified. UDS - negative ECHO - LVEF 60%, no pulmonary HTN Strong Family Hx of Malignancy Heme/Onc consulted- Dr. Radha Cervantes - help appreciated Patient discharged today, to follow up with Dr. Cervantes next week. Melyssa Galdamez Dr., DO, PGY-1
[2017-05-01 17:35] VITALS: PULSE 52
--- NOTE | 2017-05-02 10:40 | CARD ---
APPROVED REPORT EKG Measurement Heart [id number] <Conclusion> Sinus tachycardia Otherwise normal ECG
[2017-05-03 14:16] LABS: COAG FACTOR VIII ACTIVITY 98 % (50-180)
[2017-05-04 03:53] LABS: B2 GLYCOPROTEIN I AB(IGA) <9 SAU (<=20); B2 GLYCOPROTEIN I AB(IGG) <9 SGU (<=20); B2 GLYCOPROTEIN I AB(IGM) <9 SMU (<=20)
[2017-05-04 04:01] LABS: CARDIOLIPIN AB (IGA) <11 APL (<=11)
[2017-05-05 14:16] LABS: VON WILLERBRAND FACTOR AG 111 % (50-217)
[2017-05-09 14:45] LABS: PHOSPHATIDYLSERINE AB IGA <20 U/mL (<20)
== END 2017-05-01 15:44 | disposition home or self-care (01) | DRG 176 ==
LOC: C.ER 11:32 → C.9E 16:30 → C.5S 19:51
PROVIDERS: ADMIT Internal Medicine Nephrology; ATTEND Internal Medicine Nephrology
DX: I26.99 Other pulmonary embolism without acute cor pulmonale (principal); R55 Syncope and collapse; R00.0 Tachycardia, unspecified; Z82.3 Family history of stroke; F41.8 Other specified anxiety disorders; F17.210 Nicotine dependence, cigarettes, uncomplicated; Z80.9 Family history of malignant neoplasm, unspecified